=== PATIENT | male | born 1965 | race Caucasian/White ===

== ENCOUNTER 2023-10-23 11:12 | Emergency (ER) | payer OTHER, SELFPAY ==
[2023-10-23 11:50] VITALS: BP 119/80; PULSE 92; RESP 16; TEMP 36.6; O2SAT 94; BMI 31.8
--- NOTE | 2023-10-23 11:54 | ED.GENADULT ---
HPI - General Adult General Stated complaint: High BP Time Seen by Provider: 10/23/23 11:54 Source: patient Mode of arrival: ambulatory Limitations: no limitations History of Present Illness HPI narrative: Patient is a 58-year-old male presenting to the emergency department from [facility] program stating that the nurse there told him his blood pressure was elevated. He states he was not given the reading. He denies any physical complaints. Denies headache, blurred or double vision, chest pain, shortness of breath, abdominal pain or any other complaints. Denies any known history of hypertension. MD complaint: blood pressure check Related Data Allergies Allergy/AdvReac Type Severity Reaction Status Date / Time No Known Allergies Allergy Verified 10/23/23 11:49 Review of Systems Review of Systems: As per HPI. Yes all other systems are reviewed and are negative Constitutional: Constitutional: Reports as per HPI Physical Exam ED Vital Signs: Vital signs have been reviewed and appear to be correct. Blood pressure normal. Heart rate normal. Respiratory rate normal. Temperature normal. Oxygen saturation normal. Const General: cooperative, healthy appearing and no acute distress Orientation/consciousness: oriented to person, oriented to place, oriented to time and patient oriented x3 Limitations: no limitations HENMT Head: Yes normocephalic and Yes atraumatic Ears: external ears normal General nose exam: Normal external nose present Face and sinus: Yes face symmetric Mouth: oropharynx normal and moist mucous membranes Throat: Yes uvula midline Eyes Pupils: Equal, round and reactive pupils present Neck Neck: Yes normal visual inspection and Yes supple Resp Effort & Inspection: normal respiratory effort and able to speak in complete sentences Auscultation: clear to auscultation bilaterally Cardio Rate: regular rate Rhythm: regular rhythm Heart sounds: S1 normal heart sound present and S2 normal heart sound present GI Palpation (GI): Soft to palpation and nontender Auscultation: normoactive bowel sounds General: Yes no CVA tenderness Back/Spine/Pelvis Back: no CVA tenderness Skin General skin exam: elasticity normal and turgor normal Neuro General: oriented to person, oriented to place, oriented to time, patient oriented x3, moves all extremities, no focal motor deficits and CN's II-XI intact bilaterally Cranial nerves: Yes Equal, round and reactive pupils present Cognition (Neuro): normal cognition Extrem General: Yes full ROM, Yes no pedal edema and Yes no calf tenderness Psych Mental Status: mental status grossly normal Affect: normal affect Thought process: Normal thought process present Medical Decision Making Medical Decision Making [facility] Narrative: Patient is a 58-year-old male presenting to the emergency department from [facility] program stating that the nurse there told him his blood pressure was elevated. On exam patient is awake, A+Ox3, VS WNL, afebrile, normal neurological exam without focal deficits, physical exam findings as above. Given reported symptoms and physical exam findings, initial differential includes hypertensive urgency, hypertensive emergency. Patient normotensive on bilateral arms and denies any physical complaints. Feel patient is stable for discharge back to his program at this time. Advised patient to relay to nurse at the program that due to the size of his arm, a large blood pressure cuff should be used. Return precautions discussed. Patient verbalized understanding of and agreement with plan. Differential Diagnosis Differential Diagnoses: The differential diagnosis associated with the presentation includes As per MDM. External Record Review External record reviewed: Inpatient record, Office record and Outpatient record Discharge Plan Discharge Clinical Impression: Blood pressure check Patient Disposition: Home, Self-Care Instructions: How to Take a Blood Pressure (ED) Additional Instructions: You were evaluated in the emergency department today for concern of high blood pressure. Your blood pressure was normal on multiple readings in the emergency department today. Please follow-up with your primary care provider for ongoing blood pressure monitoring. Return to the emergency department if you develop severe headache, blurred or double vision or other visual changes, chest pain, shortness of breath, persistent vomiting or any other concerning symptoms.
== END 2023-10-23 12:11 | disposition home or self-care (01) ==
PROVIDERS: Emergency Provider Emergency Medicine
DX: R03.0 Elevated blood-pressure reading, without diagnosis of hypertension (principal)
CPT/HCPCS: 99282